=== PATIENT | male | born 1990 | race Native Hawaiian/Other Pacific Islander ===

== ENCOUNTER 2018-03-15 19:20 | Emergency (ER) | payer OTHER ==
[2018-03-15] MEDS ORDERED: NAPROXEN 250 MG TABLET PO STA (20:21)
[2018-03-15] MEDS ORDERED: ONDANSETRON ODT 4 MG TABLET TL STA (20:21)
--- NOTE | 2018-03-15 20:44 | CT Report ---
Reason: BLOCK, s/p injury eval for skull fx Procedure Date: 03/15/2018 Accession Number: [id number] / [id number] Procedure: CT - Head W/O CPT Code: FULL RESULT: EXAM: CT HEAD EXAM DATE: 03/15/2018 08:38 PM. CLINICAL HISTORY: BLOCK, s/p injury eval for skull fx. COMPARISON: None. TECHNIQUE: Multiaxial CT images were obtained from the foramen magnum to the vertex. Reformats: Sagittal and coronal. IV contrast: None. In accordance with CT protocol optimization, one or more of the following dose reduction techniques were utilized for this exam: automated exposure control, adjustment of mA and/or KV based on patient size, or use of iterative reconstructive technique. FINDINGS: Parenchyma: No intraparenchymal hemorrhage. No evidence of mass, midline shift, or CT findings of infarction. Lu-white differentiation is distinct. Extraaxial Spaces: Normal for age. No subdural or epidural collections identified. Ventricles: Normal in size and position. Sinuses and Orbits: Imaged paranasal sinuses, orbits, and mastoids show no significant abnormality. Bones: No evidence of fracture or calvarial defect. Other: None. IMPRESSION: Normal head CT. RADIA
[2018-03-15 20:55] VITALS: BP 122/68
--- NOTE | 2018-03-15 21:08 | ED Physician Documentation ---
PD HPI HEAD INJURY - Stated complaint Stated Complaint: GLF/HEAD PX - Chief complaint Chief Complaint: Trauma Hd/Nk - History of Present Illness Mechanism of head injury: Fell, Blow Where head injury occurred: Other (While playing basketball the patient fell after jumping and subsequently landed and struck the back of his head. Possible loss of consciousness and associated with dizziness and nausea and lightheaded ness) Timing - onset: Today Severity Comments: moderate Location of injury: Back Quality of pain: Pain, Throbbing, Aching Associated symptoms: LOC, Nausea / vomiting, Neck pain. No: AMS, Amnesia, Paresthesias, Seizures, Ear drainage Symptoms improve with: Nothing Symptoms worsen with: Palpation Contributing factors: No: Anticoagulated, Intoxicated Similar symptoms before: No diagnosis Recently seen: Not recently seen Review of Systems Constitutional: denies: Fever, Chills Eyes: denies: Discharge Ears: denies: Ear pain Nose: denies: Congestion Throat: denies: Dental pain / toothache Cardiac: denies: Chest pain / pressure Respiratory: denies: Cough GI: reports: Nausea. denies: Abdominal Pain Musculoskeletal: reports: Neck pain. denies: Extremity pain Neurologic: reports: Headache, Head injury, LOC. denies: Generalized weakness, Focal weakness, Syncope Immunocompromised: denies: Chemotherapy PD PAST MEDICAL HISTORY - Past Medical History Past Medical History: No Cardiovascular: None Respiratory: None Neuro: None Endocrine/Autoimmune: None GI: None : None HEENT: None Psych: None Musculoskeletal: None Derm: None - Past Surgical History Past Surgical History: No - Present Medications Home Medications: Ambulatory Orders Medication Instructions Recorded Confirmed No Known Home Medications 03/15/18 03/15/18 - Allergies Allergies/Adverse Reactions: Allergies Allergy/AdvReac Type Severity Reaction Status Date / Time No Known Drug Allergies Allergy Verified 03/15/18 19:51 - Social History Does the pt smoke?: No Smoking Status: Never smoker Does the pt drink ETOH?: Yes Does the pt have substance abuse?: No - Immunizations Immunizations are current?: Yes - POLST Patient has POLST: No PD ED PE NORMAL - General General: Alert and oriented X 3, No acute distress - HEENT HEENT: PERRL, EOMI, Ears normal, Pharynx benign - Neck Neck: No bony TTP, Other (The patient has bilateral paraspinal tenderness, the patient has no midline cervical tenderness in the patient's cervical spine was cleared using the Nexus criteria.) - Cardiac Cardiac: RRR - Respiratory Respiratory: No respiratory distress, Clear bilaterally - Abdomen Abdomen: Soft, Non tender - Back Back: No CVA TTP - Derm Derm: Normal color - Extremities Extremities: No deformity, No tenderness to palpate, Normal ROM s pain - Neuro Neuro: Alert and oriented X 3, 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, No motor deficit, Normal speech Eye Opening: Spontaneous Motor: Obeys Commands Verbal: Oriented GCS Score: 15 - Psych Psych: Normal mood PD ED PE EXPANDED - HEENT HEENT Visual: 1 - tenderness (The patient has a mild contusion and abrasion on the back of the skull, there is no crepitus or step-offs or laceration) Results - Vitals Vitals: Vital Signs - 24 hr 03/15/18 03/15/18 19:30 20:54 Temperature 36.4 C L 36.7 C Heart Rate 77 60 Respiratory 18 15 Rate Blood Pressure 128/70 122/68 O2 Saturation 100 100 Oxygen O2 Source Room air - Rads (name of study) CT HEAD Radiology: Final report received (IMPRESSION: Normal head CT. ) PD MEDICAL DECISION MAKING - ED course ED course: Given the mechanism and the bruise a CT scan was performed to rule out a skull fracture. The CT showed no evidence of skull fracture. On reevaluation the patient was resting comfortably and appears appropriate for discharge. I discussed with him the natural course of a concussion. I recommended no activities until symptoms resolve and he is cleared to return to full duty by primary care. I discussed warning signs and recommended return to the emergency department immediately for any worsening or any concerns. Departure - Departure Disposition: 01 Home, Self Care Clinical Impression: Concussion Qualifiers: Encounter type: initial encounter Loss of consciousness presence/duration: without LOC Qualified Code(s): S06.0X0A - Concussion without loss of consciousness, initial encounter Closed head injury Qualifiers: Encounter type: initial encounter Qualified Code(s): S09.90XA - Unspecified injury of head, initial encounter Condition: Good Instructions: ED Head Injury Closed Comments: Please follow-up with primary care. Please refrain from any activities that could result in another head injury Until your symptoms resolved and you are cleared to return to full duty by primary care. Please return to the emergency department for any worsening or any concerns.
== END 2018-03-15 21:13 | disposition home or self-care (01) ==
LOC: ED 19:20
DX: S06.0X0A Concussion without loss of consciousness, initial encounter (principal); W18.30XA Fall on same level, unspecified, initial encounter; Y93.67 Activity, basketball; Y92.39 Other specified sports and athletic area as the place of occurrence of the external cause
CPT/HCPCS: 70450; 99282; 99283; A9270; Q0162